=== PATIENT | male | born 1990 | race Caucasian/White ===

== ENCOUNTER 2023-01-05 23:30 | Emergency (ER) | payer SELFPAY ==
[~2023-01-05] VITALS: Ht 188 cm; Wt 90.0 kg
[~2023-01-05 23:30] MED LIST: COUMADIN2.5 MG PO; COUMADIN5 MG PO
[2023-01-06] LABS: BASO% 0.4 % (0-3); EOS% 0.8 % (0-8); IMMATURE GRANULOCYTES 0.2 % (0.0-5.0); LYMPH% 22.8 % (15-41); MEAN CORPUSCULAR HGB 30.8 pG CALC (26.0-32.0); MEAN CORPUSCULAR HGB CONC 34.3 g/dL CAL (32.0-36.0); MONO% 4.9 % (2-13); NEUT# 3.76 thou/uL (1.82-7.42); NEUT% 70.9 % (42-76); RED BLOOD COUNT 4.12 mill/uL (4.70-6.10); RED CELL DISTRI WIDTH 11.4 % (11.5-15.5)
[2023-01-06 00:27] LABS: HEMOGLOBIN 12.7 g/dl (14.0-18.0); MEAN CELL VOLUME 89.8 fL CALC (80.0-100.0)
[2023-01-06 00:29] LABS: ALBUMIN 4.2 g/dL (3.2-5.0); ALKALINE PHOSPHATASE 31 u/l (38-126); ANION GAP 12 (6-22 (CALC)); BILIRUBIN, TOTAL 0.6 mg/dL (0.2-1.3); BUN 9 mg/dL (9-20); BUN/CREATININE RATIO 12 (12-20 (CALC)); CARBON DIOXIDE 22 mmol/l (22-30); CHLORIDE 110 mmol/l (95-108); CREATININE 0.8 mg/dL (0.7-1.3); ETHYL ALCOHOL 211 mg/dl (0-30); GFR FOR AFR.AMER. > 60 ML/MIN (>=60 (CALC)); GFR OTHER RACES > 60 ML/MIN (>=60 (CALC)); SGOT/AST 23 u/l (17-59); SODIUM 140 mmol/l (137-146)
[2023-01-06 00:30] LABS: TOTAL PROTEIN 6.6 g/dL (6.3-8.2)
[2023-01-06 06:14] LABS: URINE BILIRUBIN - DIPSTICK NEGATIVE (NEGATIVE); URINE BLOOD DIPSTICK NEGATIVE (NEGATIVE); URINE COLOR YELLOW; URINE GLUCOSE - DIPSTICK NEGATIVE (NEGATIVE); URINE KETONE NEGATIVE (NEGATIVE); URINE LEUK ESTERASE NEGATIVE (NEGATIVE); URINE NITRITE - DIPSTICK NEGATIVE (Negative); URINE PROTEIN - DIPSTICK NEGATIVE (NEG-TRACE); URINE UROBILINOGEN - DIPSTICK 0.2 E.U./dL (0.2)
[2023-01-06] MEDS ORDERED: LORAZEPAM0.5 MG PO (21:44)
[2023-01-06] MEDS ORDERED: BUPROPN HCL150 MG PO (21:44)
[2023-01-06] MEDS ORDERED: SPIRONOLACT100 MG PO (21:47)
[2023-01-06] MEDS ORDERED: ESTRACE2 MG PO (21:48)
[2023-01-07 08:07] VITALS: BP 122/84
== END 2023-01-07 08:07 | DRG 918 ==
LOC: ED 23:30
PROVIDERS: Family Medicine
DX: T51.0X2A Toxic effect of ethanol, intentional self-harm, initial encounter (principal); T42.4X2A Poisoning by benzodiazepines, intentional self-harm, initial encounter; F41.9 Anxiety disorder, unspecified; F32.9 Major depressive disorder, single episode, unspecified; F64.0 Transsexualism; Y92.009 Unspecified place in unspecified non-institutional (private) residence as the place of occurrence of the external cause; F32.A Depression, unspecified; Z91.51 Personal history of suicidal behavior; Z20.822 Contact with and (suspected) exposure to COVID-19